=== PATIENT | male | born 1985 ===

== ENCOUNTER 2018-01-23 04:50 | Emergency (ER) | payer SELFPAY ==
[2018-01-23 05:04] VITALS: BP 110/83; TEMP 98
[2018-01-23] MEDS ORDERED: Alum-Mag Hydrox-Simethicone Susp (30 mL) PO STA (05:27)
[2018-01-23] MEDS ORDERED: Sodium Chloride 0.9% 1,000 ML IV STA (05:27)
--- NOTE | 2018-01-23 05:35 | ED PDOC ---
HPI: Chest Pain Time Seen by Provider: 01/23/18 04:57 Chief Complaint (Nursing): Chest Pain Chief Complaint (Provider): Chest pain, nausea, vomiting History Per: Patient History/Exam Limitations: no limitations Onset/Duration Of Symptoms: Hrs (x2) Current Symptoms Are (Timing): Still Present Quality: Burning Additional Complaint(s): 32 year old male, with no past medical history, presents to the ED complaining of epigastric and chest pain associated with nausea and x4 episodes of nonbloody, nonbilious vomiting 2 hours prior to arrival. Patient describes pain as a burning sensation. He admits to alcohol use earlier in the night. PMD: none Past Medical History Reviewed: Historical Data, Nursing Documentation, Vital Signs Vital Signs: Last Vital Signs Temp 98 F 01/23/18 05:02 Pulse 111 H 01/23/18 05:02 Resp 19 01/23/18 05:02 BP 110/83 01/23/18 05:02 Pulse Ox 99 01/23/18 05:02 - Medical History PMH: No Chronic Diseases - Surgical History Surgical History: No Surg Hx - Family History Family History: States: Unknown Family Hx - Social History Alcohol: Occasional Drugs: Cannabis - Home Medications Home Medications: Ambulatory Orders Medication Instructions Recorded Esomeprazole Magnesium [Nexium] 20 mg PO QAM #14 ecc 01/23/18 - Allergies Allergies/Adverse Reactions: Allergies Allergy/AdvReac Type Severity Reaction Status Date / Time No Known Allergies Allergy Verified 01/23/18 05:04 Review of Systems ROS Statement: Except As Marked, All Systems Reviewed And Found Negative Cardiovascular: Positive for: Chest Pain Gastrointestinal: Positive for: Nausea, Vomiting, Abdominal Pain (epigastric pain) Physical Exam - Reviewed Nursing Documentation Reviewed: Yes Vital Signs Reviewed: Yes - Physical Exam Appears: Positive for: Uncomfortable Head Exam: Positive for: ATRAUMATIC, NORMOCEPHALIC Skin: Positive for: Normal Color, Warm, Dry Eye Exam: Positive for: Normal appearance Neck: Positive for: Normal, Painless ROM Cardiovascular/Chest: Positive for: Regular Rate, Rhythm Respiratory: Positive for: Normal Breath Sounds. Negative for: Wheezing, Respiratory Distress Gastrointestinal/Abdominal: Positive for: Normal Exam, Soft. Negative for: Tenderness Extremity: Positive for: Normal ROM Neurologic/Psych: Positive for: Alert, Oriented. Negative for: Motor/Sensory Deficits - Laboratory Results Result Diagrams: 01/23/18 05:39 01/23/18 05:39 - ECG O2 Sat by Pulse Oximetry: 99 (RA) Pulse Ox Interpretation: Normal Medical Decision Making Medical Decision Making: Initial Impression: 32 year old male with epigastric and chest pain insetting of alcohol use Initial Plan: --ECG --Alcohol serum stat --CMP --Drug screen --Lipase stat --Troponin stat --CBC 06:23 Labs reviewed and showed no clinically significant abnormalities. Chest X ray showed no active diseases. Patient reports improvement of symptoms and is stable for discharge with diagnosis of gastritis. Scribe Attestation: Documented by Sean Weber acting as a scribe for Sanjeev Penn MD. Provider Scribe Attestation: All medical record entries made by the Scribe were at my direction and personally dictated by me. I have reviewed the chart and agree that the record accurately reflects my personal performance of the history, physical exam, medical decision making, and the department course for this patient. I have also personally directed, reviewed, and agree with the discharge instructions and disposition. Disposition - Clinical Impression Clinical Impression: Gastritis - Disposition Referrals: [facility] [Outside] Disposition: Routine/Home Disposition Time: 06:23 Condition: STABLE Prescriptions: Esomeprazole Magnesium [Nexium] 20 mg PO QAM #14 ecc Instructions: Gastritis Forms: [facility] (Nicaraguan) Print Language: LIBERIAN
[2018-01-23 05:50] LABS: BASO % 0.2 % (0.0-2.0); HEMOGLOBIN 17.4 g/dL (12.0-18.0); LYMPH # 1.1 K/uL (1.0-4.3); MEAN CELL VOLUME 87.5 fl (80.0-94.0); MEAN CORPUSCULAR HEMOGLOBIN 29.8 pg (27.0-31.0); MEAN CORPUSCULAR HGB CONC 34.1 g/dL (33.0-37.0); MEAN PLATELET VOLUME 8.6 fl (7.2-11.7); MONO # 0.4 K/uL (0.0-0.8); MONO % 3.8 % (0.0-10.0); NEUT # 9.2 K/uL (1.8-7.0); NRBC % 0.1 % (0.0-0.0); RBC 5.84 Mil/uL (4.40-5.90); RED CELL DISTRIBUTION WIDTH 13.4 % (11.5-14.5); WHITE BLOOD COUNT 10.7 K/uL (4.8-10.8)
[2018-01-23 05:57] LABS: ALB/GLOB RATIO 1.4 (1.0-2.1); ALBUMIN 5.3 g/dL (3.5-5.0); ALT/SGPT 24 U/L (21-72); AST/SGOT 25 U/L (17-59); BLOOD UREA NITROGEN 18 mg/dl (9-20); CALCIUM 9.9 mg/dL (8.4-10.2); GFR NON-AFRICAN AMERICAN > 60; LIPASE 98 U/L (23-300)
[2018-01-23] MEDS ORDERED: Alum-Mag Hydrox-Simethicone Susp (30 mL) ONE (06:31)
[2018-01-23 06:39] VITALS: PULSE 78; RESP 18
--- NOTE | 2018-01-23 08:53 | CARD ---
APPROVED REPORT Date of service: 01/23/2018 EKG Measurement Heart [id number] <Conclusion> Normal sinus rhythm with sinus arrhythmia Rightward axis Borderline ECG
--- NOTE | 2018-01-23 10:20 | RAD ---
Date of service: 01/23/2018 HISTORY: chest pain COMPARISON: No prior. FINDINGS: LUNGS: The lungs are well inflated and clear. PLEURA: No pleural effusions or pneumothorax. CARDIOVASCULAR: The heart is normal in size. No aortic atherosclerotic calcification present. OSSEOUS STRUCTURES: Within normal limits for the patient's age. VISUALIZED UPPER ABDOMEN: Normal. OTHER FINDINGS: None. IMPRESSION: No active pulmonary disease.
[2018-01-24 04:59] VITALS: O2SAT 99
== END 2018-01-23 06:39 | disposition home or self-care (01) ==
LOC: H.ER 04:50
DX: K29.70 Gastritis, unspecified, without bleeding (principal)
CPT/HCPCS: 71045; 80053; 83690; 84484; 85025; 93005; 96360; 99283; C9113; G0480; J2405; J7030